=== PATIENT | male | born 1950 | race Caucasian/White ===

== ENCOUNTER 2023-08-31 11:49 | Emergency (ER) | payer MEDICARE ==
[~2023-08-31] VITALS: Ht 188 cm; Wt 96.0 kg
[2023-08-31] MEDS ORDERED: ZYRTEC10 MG PO (13:48)
[2023-08-31] MEDS ORDERED: KEFLEX500 MG PO (13:48)
[2023-08-31] MEDS ORDERED: MEDDOSEPAK PO (13:48)
[2023-08-31 21:55] VITALS: BP 122/86
== END 2023-08-31 14:05 | disposition home or self-care (01) ==
LOC: ED 11:49
DX: T63.421A Toxic effect of venom of ants, accidental (unintentional), initial encounter (principal); L08.9 Local infection of the skin and subcutaneous tissue, unspecified; Y92.007 Garden or yard of unspecified non-institutional (private) residence as the place of occurrence of the external cause